=== PATIENT | male | born 1985 | race Caucasian/White ===

== ENCOUNTER 2017-08-18 13:29 | Emergency (ER) | payer SELFPAY ==
[~2017-08-18] VITALS: Ht 190.5 cm; Wt 135.0 kg
[~2017-08-18 13:29] MED LIST: CEPH500C3 PO; CHLO25 PO; OMEP20TA39 PO
[2017-08-18 13:31] VITALS: BP 146/89; PULSE 120; RESP 20; TEMP 98.1; O2SAT 96
--- NOTE | 2017-08-18 13:48 | PD ---
HPI Chief Complaint: ENT Complaint Time Seen by Provider: 13:38 Travel History International Travel<30 days: No Contact w/Intl Traveler<30days: No Traveled to known affect area: No History of Present Illness HPI 32-year-old male presents emergency department with decreased hearing and a fullness in the left ear for the past 3 days. Patient denies significant pain, fever, sore throat, or other symptoms. Patient has been using hydrogen peroxide to the ear canal without improvement. He denies pain. Patient is allergic to apples, carrots, celery, and walnuts. PFSH Past Medical History Asthma: Yes ( A CHILD) Anxiety: Yes (HX OF PANIC D/O) Cancer: No Cardiovascular Problems: No Diabetes: No Diminished Hearing: No GERD: Yes Glaucoma: No Hepatitis: No Hiatal Hernia: No Hypertension: No Respiratory: No Sleep Apnea: Yes (PT REPORTS " I USE TO USE A MACHINE BUT NOT ANYMORE") Thyroid Disease: No Past Surgical History Abdominal Surgery: No Cardiac Surgery: No Ear Surgery: No Endocrine Surgery: No Eye Surgery: No Genitourinary Surgery: No Gynecologic Surgery: No Neurologic Surgery: No Oral Surgery: No Pacemaker: No Thoracic Surgery: No Other Surgery: Yes (RHINOPLASTY) Social History Alcohol Use: Yes (DAILY DRINKER, APPROX 1L [place]OD[place]) Tobacco Use: Yes (ONE OR TWO CIGS PER DAY) Substance Use: No (DENIES) Allergies-Medications (Allergen,Severity, Reaction): Coded Allergies: apple (Unverified Allergy, Severe, LIPS SWELLING, 10/13/16) carrot (Unverified Allergy, Severe, RESP DISTRESS, 10/13/16) celery (Unverified Allergy, Severe, RESP DISTRESS, 10/13/16) walnut (Unverified Allergy, Severe, RESP DISTRESS, 10/13/16) Reported Meds & Prescriptions Reported Meds & Active Scripts Active Hm Omeprazole (Omeprazole) 20 Mg Tab 40 Mg PO DAILY Keflex (Cephalexin Monohydrate) 500 Mg Cap 500 Mg PO TID 5 Days Librium 25 mg Cap (Chlordiazepoxide) 25 Mg Cap 25 Mg PO Q8 Review of Systems Except as stated in HPI: all other systems reviewed are Neg General / Constitutional: No: Fever Eyes: No: Visual changes HENT: Positive: Other, No: Headaches, Vertigo, Lightheadedness, Sore Throat, Rhinitis, Rhinorrhea, Congestion, Nosebleed, Neck Stiffness, Neck Pain, Masses, Earache (See history of present illness) Cardiovascular: No: Chest Pain or Discomfort Respiratory: No: Shortness of Breath Gastrointestinal: No: Abdominal Pain Genitourinary: No: Dysuria Musculoskeletal: No: Pain Skin: No Rash Neurologic: No: Weakness Psychiatric: No: Depression Endocrine: No: Polydipsia Hematologic/Lymphatic: No: Easy Bruising Physical Exam Narrative GENERAL: Patient appears in no acute distress. SKIN: Warm and dry. HEAD: Atraumatic. Normocephalic. EYES: Pupils equal and round. No scleral icterus. No injection or drainage. ENT: No nasal bleeding or discharge. Mucous membranes pink and moist. Patient has large cerumen impaction in the left ear. Right TM is normal. Pharynx is clear. Airways patent. No sinus tenderness. Left TM is normal after cerumen impaction removal without signs of NECK: Trachea midline. Supple and nontender per CARDIOVASCULAR: Regular rate and rhythm. RESPIRATORY: No accessory muscle use. Clear to auscultation. Breath sounds equal bilaterally. GASTROINTESTINAL: Abdomen soft, non-tender, nondistended. Hepatic and splenic margins not palpable. MUSCULOSKELETAL: Extremities without clubbing, cyanosis, or edema. No obvious deformities. NEUROLOGICAL: Awake and alert. No obvious cranial nerve deficits. Motor grossly within normal limits. Five out of 5 muscle strength in the arms and legs. Normal speech. PSYCHIATRIC: Appropriate mood and affect; insight and judgment normal. Data Data Last Documented VS Vital Signs Date Time Temp Pulse Resp B/P (MAP) Pulse Ox O2 Delivery O2 Flow Rate FiO2 08/18/17 13:31 98.1 120 20 146/89 (108) 96 Orders Orders Ed Discharge Order (08/18/17 13:48) [facility] Medical Decision Making Medical Screen Exam Complete: Yes Emergency Medical Condition: Yes Differential Diagnosis Decreased hearing. Otitis media. Cerumen impaction. Eustachian tube dysfunction. Narrative Course Cerumen impaction is irrigated out without difficulty. Patient symptoms resolved. TM is normal without perforation. Discussed proper earwax removal in the future. Patient to follow-up as needed. Procedures Procedure Narrative Left ear Diagnosis Primary Impression: Hearing loss of left ear due to cerumen impaction Patient Instructions: Cerumen Impaction (ED), General Instructions Additional Instructions: Cerumen impaction is irrigated out without difficulty. Patient symptoms resolved. TM is normal without perforation. Discussed proper earwax removal in the future. Patient to follow-up as needed. Med/Other Pt SpecificInfo: No Meds Exist/No RX given Disposition: 01 DISCHARGE HOME Condition: Stable Silvano Brooks Aug 18, 2017 13:48
== END 2017-08-18 14:13 | disposition home or self-care (01) ==
LOC: NEPD 13:29
DX: H61.22 Impacted cerumen, left ear (principal); F41.9 Anxiety disorder, unspecified; J45.909 Unspecified asthma, uncomplicated; K21.9 Gastro-esophageal reflux disease without esophagitis; F17.210 Nicotine dependence, cigarettes, uncomplicated
CPT/HCPCS: 99282